=== PATIENT | female | born 1985 | race African-American/Black ===

== ENCOUNTER 2019-10-22 18:15 | Emergency (ER) | payer OTHER ==
[2019-10-22 18:24] VITALS: TEMP 99.1; BMI 36.6
--- NOTE | 2019-10-22 20:18 | PDOC ---
History of Present Illness - General Chief Complaint: Back Pain Stated Complaint: LOWER BACK PAIN Time Seen by Provider: 10/22/19 19:14 History Source: Patient Exam Limitations: No Limitations - History of Present Illness Initial Comments: 10/22/19 20:13 Patient is a 33 year old obese female with h/o muscle spasm, HTN - non compliant with meds, arthritis, c/o lower back x 1 week. States she got up woke up with pain 1 week ago. Has been taking Motrin last dose was 3 pm. States get minimal relief but pain now is 10/10 no aggravating or alleviating factors. She denies any bowel or bladder incontinence. Denies saddle anesthesia, heavy lifting. Patient states that she has had back issues in the past and had seen a neurologist for low back pain was told that she had a pinched nerve. PMD: Dr. Hogan PMHX: as above PSOCHX: (+) cig 1 PPD, neg etoh, neg drugs ALL: NKDA GENERAL/CONSTITUTIONAL: [No fever or chills. No weakness. No weight change.] HEAD, EYES, EARS, NOSE AND THROAT: [No change in vision. No ear pain or discharge. No sore throat.] CARDIOVASCULAR: [No chest pain or shortness of breath.] RESPIRATORY: [No cough, wheezing, or hemoptysis.] GASTROINTESTINAL: [No nausea, vomiting, diarrhea or constipation. No rectal bleeding.] GENITOURINARY: [No dysuria, frequency, or change in urination.] MUSCULOSKELETAL: [(+) joint or muscle swelling or pain. (+) neck or back pain.] SKIN AND BREASTS: [No rash or easy bruising.] NEUROLOGIC: [No headache, vertigo, loss of consciousness, or loss of sensation.] PSYCHIATRIC: [No depression or anxiety.] ENDOCRINE: [No increased thirst. No abnormal weight change.] HEMATOLOGIC/LYMPHATIC: [No anemia, easy bleeding, or history of blood clots.] ALLERGIC/IMMUNOLOGIC: [No hives or skin allergy. No latex allergy.] GENERAL: [The patient is awake, alert, and fully oriented, in acute distress.] HEAD: [Normal with no signs of trauma.] EYES: [Pupils equal, round and reactive to light, extraocular movements intact, sclera anicteric, conjunctiva clear.] ENT: [Ears normal, nares patent, oropharynx clear without exudates. Moist mucous membranes.] NECK: [Normal range of motion, supple without lymphadenopathy, JVD, or masses.] LUNGS: [Breath sounds equal, clear to auscultation bilaterally. No wheezes, and no crackles.] HEART: [Regular rate and rhythm, normal S1 and S2 without murmur, rub.] ABDOMEN: [Soft, nontender, normoactive bowel sounds. No guarding, no rebound. No masses.] EXTREMITIES: [Normal range of motion, no edema. No clubbing or cyanosis. No cords, erythema, or tenderness.] BACK: tenderness mid line lumbar spine, paralumbar tenderness and tenderness in the bilateral buttocks. NEUROLOGICAL: [Cranial nerves II through XII grossly intact. Normal speech, normal gait, negative Romberg, 5/5 strength bilaterally.] PSYCH: [Normal mood, normal affect.] SKIN: [Warm, Dry, normal turgor, no rashes or lesions noted.] Past History - Past Medical History Allergies/Adverse Reactions: Allergies Allergy/AdvReac Type Severity Reaction Status Date / Time Penicillins Allergy Severe Rash Verified 10/22/19 18:21 Home Medications: Ambulatory Orders Amlodipine Besylate [Norvasc -] 10 mg PO DAILY #15 tablet 10/23/19 Cyclobenzaprine HCl [Flexeril 10 mg] 10 mg PO TID #30 tablet 10/23/19 Ibuprofen [Motrin -] 600 mg PO QID #30 tablet 10/23/19 - Psycho Social/Smoking Cessation Hx Smoking History: Current every day smoker Number of Cigarettes Smoked Daily: 20 Information on smoking cessation initiated: Yes Hx Alcohol Use: No Drug/Substance Use Hx: No *Physical Exam - Vital Signs Last Vital Signs Temp Pulse Resp BP Pulse Ox 99.1 F 89 16 180/104 H 99 10/22/19 18:21 10/22/19 18:21 10/22/19 18:21 10/22/19 18:21 10/22/19 18:21 Medical Decision Making - Medical Decision Making 10/22/19 20:13 Patient is a 33 year old obese female with h/o muscle spasm, HTN - non compliant with meds, arthritis, c/o lower back x 1 week. States she got up woke up with pain 1 week ago. Has been taking Motrin last dose was 3 pm. States get minimal relief but pain now is 10/10 no aggravating or alleviating factors. She denies any bowel or bladder incontinence. She denies any heavy lifting. Patient states that she has had back issues in the past and had seen a neurologist for low back pain was told that she had a pinched nerve. 1. Patient with low back pain most likely musculoskeletal, rule out UTI UA Lumbar spine x-ray. 2. Patient noted to have elevated blood pressure Will give amlodipine 10 mg p.o. Had a discussion with the patient still why she was not taking her blood pressure medication. She states that she was on hydrochlorothiazide and it made her itchy and urinated a lot so she stopped taking it. UA reviewed noted patient had blood in the urine we will send for CTap Noncon rule out stone Will have lumbar spine reformatted. 10/23/19 01:07 Patient Full Name: MEE PRICE Patient Accession No: [id number] Patient : 1985 Reason for Exam: back px c/hematuria Referring Physician: Patient Name: ALBERT CABAN THIS IS A PRELIMINARY REPORT FROM [facility] DATE OF SERVICE: 2019-10-22 23:15:34 IMAGES: [id number] EXAM: ABDOMEN \T\ PELVIS CT W/O CONTR HISTORY: Back pain and hematuria COMPARISON: None. FINDINGS: Lung bases are clear. The visualized cardiac chambers are normal size and configuration. Normal unenhanced liver, gallbladder, pancreas, spleen, adrenal glands and kidneys. The stomach and abdominal small and large bowel are normal. There is no aortic aneurysm. There is no significant retroperitoneal lymphadenopathy. Diastases recti is noted with small fat-containing umbilical hernia. The pelvic small and large bowel are normal. The appendix is normal. The uterus and adnexal structures are normal. Urinary bladder is unremarkable. There is minimal pelvic free fluid. No discrete pelvic lymphadenopathy is identified. IMPRESSION: No localizing signs for acute pathology. One or more of the following dose reduction techniques were used: automated exposure control, adjustment of the mA and/or kV according to patient size, use of iterative reconstructive technique. THIS DOCUMENT HAS BEEN ELECTRONICALLY SIGNED Max Toney MD 10/23/2019 01:03 SUMAYA Smalls Please call [facility] [phone] with questions. INTERPRETING RADIOLOGIST: Kartik Toney MD Electronically Signed: Oct 23, 2019 01:04AM EST Patient Full Name: MEE PRICE Patient Accession No: [id number] Patient : 1985 Reason for Exam: back px Referring Physician: Patient Name: ALBERT CABAN THIS IS A PRELIMINARY REPORT FROM [facility] DATE OF SERVICE: 2019-10-22 23:15:34 IMAGES: [id number] EXAM: LUMBAR SPINE CT W/O CONTRAST HISTORY: 33-year-old female back pain COMPARISON: None. FINDINGS: Mild degenerative disc disease. Mild degenerative joint disease of the lower lumbar facets. No acute fracture or traumatic subluxation. Mild neuroforaminal narrowing in the lower lumbar levels. Left adrenal nonspecific mild 6.5 x 1.9 x 1.3 cm nodule on sagittal image 53 and axial image 37. Diverticulosis. Heterogeneous enlarged uterus may be due to fibroids and other uterine masses including malignancy cannot be excluded. Heterogeneous density in the ovaries most likely due to ovarian cysts. Small amount of dependent pelvic fluid may be physiologic. Small umbilical hernia of omental fat without incarceration. Significant subcutaneous adipose tissue is incompletely included within the [id number]. IMPRESSION: No acute fracture or traumatic subluxation. Mild degenerative disc disease. Mild degenerative joint disease of the lower lumbar facets. Mild neuroforaminal narrowing in the lower lumbar levels. If the patient has persistent pain follow-up outpatient MRI Lumbar Spine may be needed. Left adrenal nonspecific mild 6.5 x 1.9 x 1.3 cm nodule. If clinically indicated follow-up outpatient MRI Abdomen Adrenal Gland Protocol may be needed. Diverticulosis. Heterogeneous enlarged uterus may be due to fibroids and other uterine masses including malignancy cannot be excluded. If clinically indicated follow-up outpatient [facility] consultation may be needed. Heterogeneous density in the ovaries most likely due to ovarian cysts. If clinically indicated follow-up Outpatient Pelvic Ultrasound may be needed. Small amount of dependent pelvic fluid may be physiologic. Small umbilical hernia of omental fat without incarceration. This CT exam was performed using one or more of the following dose reduction techniques: automated exposure control, adjustment of the mA and/or kV according to patient size, use of iterative reconstruction technique. One or more of the following dose reduction techniques were used: automated exposure control, adjustment of the mA and/or kV according to patient size, use of iterative reconstructive technique. THIS DOCUMENT HAS BEEN ELECTRONICALLY SIGNED José Srinivasan MD 10/23/2019 01:09 SUMAYA Smalls Please call [facility] [phone] with questions. INTERPRETING RADIOLOGIST: José Srinivasan MD Electronically Signed: Oct 23, 2019 01:10AM SUMAYA I discussed the physical exam findings, ancillary test results and final diagnoses with the patient. I answered all of the patient's questions. The patient was satisfied with the care received and felt comfortable with the discharge plan and treatment plan. The Patient agrees to follow up with the primary care physician within 24-72 hours. Discharge - Discharge Information Problems reviewed: Yes Clinical Impression/Diagnosis: Low back pain Qualifiers: Chronicity: unspecified Back pain laterality: unspecified Sciatica presence: unspecified whether sciatica present Qualified Code(s): M54.5 - Low back pain Hypertension Qualifiers: Hypertension type: unspecified Qualified Code(s): I10 - Essential (primary) hypertension Condition: Stable Disposition: HOME - Additional Discharge Information Prescriptions: Amlodipine Besylate [Norvasc -] 10 mg PO DAILY #15 tablet Cyclobenzaprine HCl [Flexeril 10 mg] 10 mg PO TID #30 tablet Ibuprofen [Motrin -] 600 mg PO QID #30 tablet - Follow up/Referral Referrals: Neno Peñaloza MD [Primary Care Provider] - - Patient Discharge Instructions Patient Printed Discharge Instructions: Essential Hypertension, DI for Low Back Pain Additional Instructions: Your Discharge Instructions: You must call primary care physician within 24 hours to arrange follow-up. Return to the Emergency Department with any new, persistent or worsening symptoms, for fever, chills, SOB, dizziness or any other concerning changes that may occur. You must follow-up with with your neurologist for further management and treatment of your back pain. You must follow-up with your primary care doctor for continued blood pressure monitoring and treatment. - Post Discharge Activity
[2019-10-22] MEDS ORDERED: LIDOCAINE 5% TOPICAL PATCH TP ONE (20:19)
[2019-10-22] MEDS ORDERED: CYCLOBENZAPRINE HCL 10 MG TABLET (FP) PO ONE (20:19)
[2019-10-22] MEDS ORDERED: KETOROLAC TROMETHAMINE 60 MG/2 ML VIAL IM ONE (20:19)
[2019-10-22] MEDS ORDERED: LIDOCAINE 5% TOPICAL PATCH ONE (20:26)
[2019-10-22] MEDS ORDERED: KETOROLAC TROMETHAMINE 60 MG/2 ML VIAL ONE (20:26)
[2019-10-22] MEDS ORDERED: CYCLOBENZAPRINE HCL 10 MG TABLET (FP) ONE (20:26)
[2019-10-22 20:44] LABS: EPI CELLS 1.2 /HPF (0-5/HPF); HYALINE CASTS 2 /lpf (0-8); URINE APPEARANCE CLEAR; URINE BACTERIA 7.9 /hpf (NEGATIVE); URINE BILIRUBIN NEGATIVE (NEGATIVE); URINE COLOR YELLOW; URINE GLUCOSE (UA) NEGATIVE (NEGATIVE); URINE KETONE TRACE (NEGATIVE); URINE LEUK ESTERASE NEGATIVE (NEGATIVE); URINE NITRITE NEGATIVE (NEGATIVE); URINE PROTEIN NEGATIVE (NEGATIVE); URINE RBC 10 /hpf (0-4); URINE UROBILINOGEN 0.2 mg/dL (0.2-1.0); URINE WBC 1 /hpf (0-5)
[2019-10-22] MEDS ORDERED: amLODIPine BESYLATE 5 MG TABLET (FP) ONE (21:11)
[2019-10-22 21:14] VITALS: PULSE 88
[2019-10-22] MEDS ORDERED: amLODIPine BESYLATE 10 MG TABLET (FP) PO ONE (21:24)
[2019-10-22] MEDS ORDERED: LIDOCAINE PATCH REMOVAL MC SCH (22:00)
[2019-10-22 22:53] LABS: HCG,QUALITATIVE URINE Negative
[2019-10-22 23:29] VITALS: BP 171/106
== END 2019-10-23 01:30 | disposition home or self-care (01) ==
LOC: JER 18:15
PROC: 3E0233Z Introduction of Anti-inflammatory into Muscle, Percutaneous Approach (ICD-10-PCS; principal; 2019-10-22)
DX: M54.5 Low back pain (principal); I10 Essential (primary) hypertension; M12.9 Arthropathy, unspecified; M79.18 Myalgia, other site; F17.210 Nicotine dependence, cigarettes, uncomplicated; Z88.0 Allergy status to penicillin
CPT/HCPCS: 72100-TC-FY; 72131-TC; 74176-TC; 81003; 84703; 96372; 99282-25